=== PATIENT | female | born 1950 | race Caucasian/White ===

== ENCOUNTER → 2018-05-07 | Outpatient (CLI) | payer MEDICARE, BC ==
[~2018-05-07] MED LIST: COMPAZINE 110 MG/TAB PO; FLAGYL500 MG PO; K-DUR 10 MEQ T10 MEQ PO; LOPRESSOR 225 MG/TAB PO; LOVENOX 4040 MG/0.4 SQ; MAG-OX 400400 MG/TAB PO; MICRO-K 1010 MEQ PO; NEPHROCAP PO; NORCO 325 MG-51 TAB PO; NORVASC 5MG5 MG/TAB PO; PEPCID 20MG TAB20 MG PO; PYRIDIUM 100MG100 MG PO; ROXICODONE 55 MG/TAB PO; SENOKOT S 50 MG1 TAB PO; TYLENOL EXTRA500 M1 PO
== END ==
LOC: MC.RAD 08:49
DX: Z12.31 Encounter for screening mammogram for malignant neoplasm of breast (principal); N63.10 Unspecified lump in the right breast, unspecified quadrant

== ENCOUNTER → 2018-05-14 | Outpatient (CLI) | payer MEDICARE, BC | LOC: MC.RAD 07:50 | DX: N63.10 Unspecified lump in the right breast, unspecified quadrant (principal) ==